=== PATIENT | female | born 1985 | race Caucasian/White ===

== ENCOUNTER 2018-01-20 23:37 | Emergency (ER) | payer OTHER ==
[2018-01-20 23:47] VITALS: RESP 16
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
[2018-01-21 01:27] VITALS: BP 113/76; PULSE 78; TEMP 98
== END 2018-01-21 01:27 | disposition home or self-care (01) ==
LOC: EC 23:37
DX: S00.83XA Contusion of other part of head, initial encounter (principal); F41.9 Anxiety disorder, unspecified; F11.10 Opioid abuse, uncomplicated; F17.200 Nicotine dependence, unspecified, uncomplicated; Z79.899 Other long term (current) drug therapy; Y93.89 Activity, other specified; Y92.59 Other trade areas as the place of occurrence of the external cause; Y04.2XXA Assault by strike against or bumped into by another person, initial encounter
CPT/HCPCS: 82075; 99283